=== PATIENT | male | born 1990 | race Caucasian/White ===

== ENCOUNTER 2022-04-19 03:01 | Emergency (ER) | payer BC, MEDICAID ==
[~2022-04-19] VITALS: Ht 177.8 cm; Wt 83.9 kg
[2022-04-19 03:26] VITALS: BP 131/70
--- NOTE | 2022-04-19 03:26 | NUR ---
to bed ambulatory
--- NOTE | 2022-04-19 03:45 | NUR ---
Patient being evaluated by physician at bedside.
--- NOTE | 2022-04-19 03:49 | NUR ---
31 YO M BIBS W C/O OF ANXIETY. PT STATES HE HAD 1 DRINK AND NOW FEELS "DISCOMBOBULATED." PMH: BIPOLAR TYPE 1 MEDS: LITIUM, LUNESTA, SEROQUEL, DEPAKOTE NKDA
[2022-04-19] MEDS ORDERED: HYDR-636 PO (04:05)
[2022-04-19] MEDS ORDERED: LORazepam 1 MG TAB PO ONE (04:05)
--- NOTE | 2022-04-19 04:12 | NUR ---
Patient appears to be resting comfortably in bed. Vital Signs within normal limits. Respirations even and unlabored.
--- NOTE | 2022-04-19 05:38 | NUR ---
Patient discharged with v/s stable. Written and verbal after care instructions given and explained. Patient alert, oriented and verbalized understanding of instructions. Ambulatory with steady gait. All questions addressed prior to discharge. ID band removed. Patient advised to follow up with PMD. Rx of HYDROXYZINE HCL given. Patient educated on indication of medication including possible reaction and side effects. Opportunity to ask questions provided and answered.
== END 2022-04-19 05:26 | disposition home or self-care (01) ==
LOC: MED 03:01
DX: F41.9 Anxiety disorder, unspecified (principal); F31.9 Bipolar disorder, unspecified; R20.2 Paresthesia of skin; R10.9 Unspecified abdominal pain; R00.2 Palpitations; Z79.899 Other long term (current) drug therapy
CPT/HCPCS: 99283